=== PATIENT | male | born 1990 | race Caucasian/White ===

== ENCOUNTER 2020-12-13 21:51 | Emergency (ER) | payer OTHER ==
[~2020-12-13] VITALS: Ht 167.6 cm; Wt 90.7 kg
[2020-12-13 21:51] VITALS: BP_SYST 138
--- NOTE | 2020-12-13 22:58 | NUR ---
Patient to ER bed 6 to gown for evaluation. Side rails up.
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
[2020-12-13] MEDS ORDERED: IBUPROFEN 800 MG TABLET PO ONE (23:30)
--- NOTE | 2020-12-14 00:58 | NUR ---
Patient given written and verbal discharge instructions and verbalizes understanding. ER MD discussed with patient the results and treatment provided. Patient in stable condition. ID arm band removed. Rx of NORCO (12), IBUPROFEN given. Patient educated on pain management and to follow up with PMD. Pain Scale 0/10. Opportunity for questions provided and answered. Medication side effect fact sheet provided.
== END 2020-12-14 00:58 | disposition home or self-care (01) ==
LOC: SED 21:51
DX: S86.811A Strain of other muscle(s) and tendon(s) at lower leg level, right leg, initial encounter (principal); S40.012A Contusion of left shoulder, initial encounter; S20.219A Contusion of unspecified front wall of thorax, initial encounter; J45.909 Unspecified asthma, uncomplicated; V47.5XXA Car driver injured in collision with fixed or stationary object in traffic accident, initial encounter; Y93.89 Activity, other specified; Y92.89 Other specified places as the place of occurrence of the external cause; Y99.8 Other external cause status
CPT/HCPCS: 71046-TC; 73030; 99284

== ENCOUNTER 2023-08-18 20:40 | Emergency (ER) | payer OTHER ==
[~2023-08-18] VITALS: Ht 167.6 cm; Wt 108.9 kg
[2023-08-18 20:52] VITALS: BP_SYST 125; PULSE 95; RESP 18; TEMP 97.3; O2SAT 97
[2023-08-18] MEDS: IBUPROFEN 600 MG TABLET PO ONE (21:30)
[2023-08-18] MEDS ORDERED: IBUP-1969 PO (21:40)
== END 2023-08-18 21:48 | disposition home or self-care (01) ==
LOC: SED 20:40
DX: S63.591A Other specified sprain of right wrist, initial encounter (principal); V29.888A Rider (driver) (passenger) of other motorcycle injured in other specified transport accidents, initial encounter; Y93.89 Activity, other specified; Y92.89 Other specified places as the place of occurrence of the external cause; Y99.8 Other external cause status
CPT/HCPCS: 99283